=== PATIENT | male | born 1955 | race Caucasian/White ===

== ENCOUNTER 2022-07-03 12:55 | Inpatient (IN) | payer MEDICARE, SELFPAY ==
[2022-07-03] MEDS ORDERED: Fentanyl 100 MCG/2 ML VIAL ONE ×2 (13:21→16:42)
[2022-07-03] MEDS ORDERED: Cefepime 2 GM VIAL ONE (13:23)
[2022-07-03 13:25] LABS: #Eosinphils 0.1 thou/uL (0.0-0.7); #Monocytes 0.6 thou/uL (0.11-0.59); #Neutrophils 9.8 thou/uL (1.40-6.50); %Basophils 0.3 % (0.0-1.0); %Eosinophils 0.8 % (0.0-10.0); %Lymphocytes 15.9 % (21.0-51.0); Mean Corpuscular HGB CONC 31.5 g/dL (32.0-36.0); Mean Corpuscular Hemoglobin 31.5 pg (27.0-31.0); Mean Platelet Volume 11.2 fL (7.4-10.4); Platelet Count 134 10x3/uL (130-400); RBC Distribution Width 13.9 % (11.5-14.5); Red Blood Cell (RBC) Count 5.06 mill/uL (4.70-6.10); White Blood Cell (WBC) Count 12.5 10x3/uL (4.8-10.8)
[2022-07-03 13:37] LABS: Actual Bicarbonate (HCO3v) 23 mEq/L (22-28); Base Excess -2.2 mEq/L (-2.0 to +3.0); Calcium, Ionized (venous) 1.18 mmol/L (1.16-1.32); Chloride (VBG) 121 mmol/L (98-106); Hemoglobin (Hb) 17.3 g/dL (12.6-17.4); Potassium (VBG) 5.28 mmol/L (3.70-5.30); pH (venous) 7.36 (7.32-7.43)
[2022-07-03] MEDS ORDERED: VANCOMYCIN 2 GRAM/500 ML BAG 2 GM in Premix Bag 1 BAG IVPB SCH (14:00)
[2022-07-03 14:09] LABS: CKMB 19.7 ng/mL (0-6.6)
[2022-07-03 14:50] LABS: Albumin 2.4 g/dL (3.4-4.8)
[2022-07-03 14:51] LABS: Chloride 128 mmol/L (98-107); Potassium 4.4 mmol/L (3.5-5.1)
[2022-07-03 14:52] LABS: Calcium 8.5 mg/dL (7.8-10.44)
[2022-07-03 14:53] LABS: Globulin 4.1 g/dL (2.4-3.5); Glucose 136 mg/dL (80-115); Protein, Total 6.5 g/dL (5.8-8.1)
[2022-07-03 14:54] LABS: Anion Gap 15 mmol/L (10-20); Carbon Dioxide 15 mmol/L (23-31)
[2022-07-03 14:55] LABS: Bacteria/HPF 4+ HPF (None Seen); Bilirubin Negative (Negative); Blood, Urine 1+ (Negative); Clarity Turbid (Clear); Glucose, Urine (Dipstick) Normal (Negative); Ketone, Urine Negative (Negative); Leukocyte 500 Leu/uL (Negative); Nitrite Negative (Negative); Protein, Urine (Dipstick) 70 mg/dL (Neg-Trace); Specific Gravity, Urine 1.019 (1.002-1.036); Squamous Epithelial None Seen HPF (0-3); Urobilinogen Normal mg/dL (Less than 2); WBC/HPF Greater than 50 HPF (0-3); pH, Urine 5.5 (5.0-9.0)
[2022-07-03 14:55] LABS: Bilirubin, Total 0.6 mg/dL (0.2-1.2)
[2022-07-03 14:56] LABS: Calc. Creatinine Clearance 0 mL/min (70-130); Estimated GFR 16
[2022-07-03 14:57] LABS: BUN (Urea Nitrogen) 74 mg/dL (8.4-25.7)
[2022-07-03 14:58] LABS: AST (SGOT) 41 U/L (5-34)
[2022-07-03 15:01] LABS: Sodium 154 mmol/L (136-145)
[2022-07-03] MEDS ORDERED: Iopamidol-370 76% 500 ML 1 ML ONE (15:09)
[2022-07-03 15:16] LABS: ALT (SGPT) 23 U/L (8-55); Alkaline Phosphatase 100 U/L (40-110)
[2022-07-03 15:24] LABS: SARS-CoV-2 NAA Rapid Test Not Detected (NotDetected)
[2022-07-03] MEDS ORDERED: Acetaminophen 650 MG Suppository PR PRN (15:31)
[2022-07-03] MEDS ORDERED: Ondansetron PF 4 MG/2 ML Vial IVP PRN (15:31)
[2022-07-03 16:29] VITALS: BMI 30.5
[2022-07-03] MEDS ORDERED: Vancomycin Dose by Levels Sliding Scale (Wt 71-99) FS SCH (16:30)
[2022-07-03] MEDS ORDERED: metroNIDAZOLE 500 MG in Premix Bag 1 BAG IVPB SCH (17:00)
[2022-07-03 17:05] LABS: Lactic Acid 3.3 mmol/L (0.5-2.2)
[2022-07-03] MEDS: Dextrose 5% in Water 1,000 ML IV SCH (20:04)
[2022-07-03] MEDS: metroNIDAZOLE 500 MG in Premix Bag 1 BAG IVPB SCH (20:04)
[2022-07-03] MEDS ORDERED: Fentanyl 100 MCG/2 ML VIAL SLOW IVP SCH (23:00)
[2022-07-04] MEDS: metroNIDAZOLE 500 MG in Premix Bag 1 BAG IVPB SCH ×3 (04:43→20:22)
[2022-07-04] MEDS ORDERED: Fentanyl 100 MCG/2 ML VIAL SLOW IVP SCH (05:15)
[2022-07-04 07:11] LABS: Anion Gap 13 mmol/L (10-20); BUN (Urea Nitrogen) 70 mg/dL (8.4-25.7); Calc. Creatinine Clearance 28 mL/min (70-130); Calcium 9.2 mg/dL (7.8-10.44); Carbon Dioxide 14 mmol/L (23-31); Chloride 128 mmol/L (98-107); Estimated GFR 21; Glucose 123 mg/dL (80-115); Potassium 4.3 mmol/L (3.5-5.1)
[2022-07-04 07:18] LABS: Sodium 151 mmol/L (136-145)
[2022-07-04] MEDS: Cefepime 1 GM in Sodium Chloride 0.9% 100 ML IVPB SCH (13:07)
[2022-07-04] MEDS: Morphine 2 MG/ML VIAL SLOW IVP PRN (13:07)
[2022-07-04] MEDS: Dextrose 5% in Water 1,000 ML IV SCH (13:08)
[2022-07-04 14:24] LABS: Vancomycin, Random 20.9 ug/mL (See Comment)
[2022-07-05] MEDS: metroNIDAZOLE 500 MG in Premix Bag 1 BAG IVPB SCH ×2 (04:16→11:21)
[2022-07-05] MEDS: Morphine 2 MG/ML VIAL SLOW IVP PRN ×3 (06:23→15:32)
[2022-07-05 08:24] VITALS: BP 80/48; TEMP 99
[2022-07-05] MEDS: Cefepime 1 GM in Sodium Chloride 0.9% 100 ML IVPB SCH (12:28)
== END 2022-07-05 16:53 | disposition hospice, inpatient (51) | DRG 871 ==
LOC: ERS 12:55 → ERHOLD 15:36 → T4-A 17:40
PROVIDERS: ADMIT Internal Medicine; ATTEND Internal Medicine
DX: A41.9 Sepsis, unspecified organism (principal); J18.9 Pneumonia, unspecified organism; R65.21 Severe sepsis with septic shock; Z66 Do not resuscitate; Z51.5 Encounter for palliative care; Z20.822 Contact with and (suspected) exposure to COVID-19; J96.01 Acute respiratory failure with hypoxia; E87.0 Hyperosmolality and hypernatremia; F03.90 Unspecified dementia, unspecified severity, without behavioral disturbance, psychotic disturbance, mood disturbance, and anxiety; I10 Essential (primary) hypertension; E78.5 Hyperlipidemia, unspecified; F41.9 Anxiety disorder, unspecified; F31.9 Bipolar disorder, unspecified; F25.9 Schizoaffective disorder, unspecified; L89.152 Pressure ulcer of sacral region, stage 2; Z86.73 Personal history of transient ischemic attack (TIA), and cerebral infarction without residual deficits; Z88.0 Allergy status to penicillin; Z87.898 Personal history of other specified conditions; Z98.84 Bariatric surgery status; Z98.890 Other specified postprocedural states; Z87.891 Personal history of nicotine dependence; Z74.01 Bed confinement status
CPT/HCPCS: 36415; 36416; 51702; 70450; 71045; 71275; 74177; 80048; 80053; 80202; 81003; 81015; 82553; 82805; 83605; 84484; 85025; 85379; 86850; 86900; 86901; 87040; 87077; 87086; 87149; 87186; 93005; 94760; 96365; 96366; 96367; 96375; 96376; 97139; J0692; J2272; J3010; J3370; J3490; J7070; Q9967; U0002